=== PATIENT | female | born 1960 | race Caucasian/White ===

== ENCOUNTER 2021-03-11 22:28 | Emergency (ER) | payer OTHER ==
[2021-03-11] MEDS ORDERED: Diphtheria,Pertussis(Acell),Tetanus Vaccine 0.5 ML Syringe IM ONE (22:53)
[2021-03-11] MEDS ORDERED: Bacitracin Oint 1 GM U/D Packet TOP ONE (23:08)
--- NOTE | 2021-03-11 23:14 | EDM.PDOC ---
ED HPI GENERAL MEDICAL PROBLEM - General Chief Complaint: Bite:Animal, Insect Stated Complaint: DOG BITE ON NOSE Time Seen by Provider: 03/11/21 22:43 Source of Information: Reports: Patient History Limitations: Reports: No Limitations - History of Present Illness INITIAL COMMENTS - FREE TEXT/NARRATIVE: Is a 60-year-old female presenting to the ED for evaluation of a dog bite to her face. Patient was watching her daughter's dog which is a rat terrier Cesar mix. She was getting ready to go to bed and was doing something with the dog resulting in the dog biting her in the nose. She has a 1.2 cm laceration of the left nares to the tip of the nose causing a small avulsion flap. Bleeding is controlled. There are several other superficial lacerations that only go thro ugh the epidermis but not into the dermis. The dog is up to date on its vaccinations. The patient believes that her last tetanus was many years ago so we will booster that today. Nose Pain Score (Numeric/FACES): 3 - Related Data Allergies Allergy/AdvReac Type Severity Reaction Status Date / Time No Known Allergies Allergy Verified 03/11/21 22:47 Home Meds: Home Meds NK [No Known Home Meds] 03/11/21 [History] Social & Family History - Tobacco Use Tobacco Use Status *Q: Never Tobacco User - Recreational Drug Use Recreational Drug Use: No ED ROS GENERAL - Review of Systems Review Of Systems: See Below Constitutional: Reports: No Symptoms HEENT: Reports: Other (Dog bite to the nose causing a 1.2 cm laceration to the left naris) Respiratory: Reports: No Symptoms Cardiovascular: Reports: No Symptoms ED EXAM, ANIMAL BITE - Physical Exam Exam: See Below Exam Limited By: No Limitations General Appearance: Alert, No Apparent Distress Nose: Nasal Swelling (Can [place] to the dog bite), Other (1.2 cm laceration (avulsion) from the mid left naris to the tip of the nose. Several other sizable superficial lacerations on both sides of the nose that have already scabbed over.) Head: Normocephalic, Facial Swelling (Mild swelling of the tip of the nose and nasal bridge to the dog bite) Neck: Normal Inspection, Supple. No: Lymphadenopathy (R), Lymphadenopathy (L) ED ANIMAL BITE PROCEDURES - Laceration/Wound Repair Left Nare Lac/Wound Length In cm: 1.2 Appearance: Subcutaneous, Stellate, Mildly Contaminated Distal NVT: Neuro & Vascular Intact Anesthetic Type: Local Local Anesthesia - Lidocaine (Xylocaine): 1% with EPI Local Anesthetic Volume: 1cc Skin Prep: Other (Soap and water) Exploration/Debridement/Repair: Wound Explored, In a Bloodless Field, Explored to Base, No Foreign Material Found, Other (Alignment of the avulsion flap to the tip of the nose from the left naris) Closed With: Sutures Suture Size: 5-0 # of Sutures: 3 Suture Type: Interrupted, Other (5-0 fast-absorbing gut) Sterile Dressing Applied: Nurse Tetanus Status Addressed: Yes Complications: No Course - Vital Signs Last Recorded V/S: Last Vital Signs Temp 36.5 C 03/11/21 22:46 Pulse 64 03/11/21 22:46 Resp 18 03/11/21 22:46 BP 138/72 03/11/21 22:46 Pulse Ox 97 03/11/21 22:46 - Orders/Labs/Meds Orders: Active Orders 24 hr Category Date Time Status Vaccine to be Administered/Admin Charge [RC] ASDIRECTED Care 03/11/21 22:53 Ordered Bacitracin [Bacitracin Oint 1 GM] Med 03/11/21 23:08 Once 1 dose TOP ONETIME ONE Meds: Medications Discontinued Medications Generic Name Dose Route Start Last Admin Trade Name Joseq PRN Reason Stop Dose Admin Diphtheria/Tetanus/Acell Pertussis 0.5 ml 03/11/21 22:53 Diphtheria,Pertussis(Acell),Tetanus Vaccine 0.5 Ml Syringe IM 03/11/21 22:54 .ONCE ONE - Re-Assessments/Exams Free Text/Narrative Re-Assessment/Exam: 03/11/21 23:13 the patient sustained a significant avulsion laceration to the naris due to a dog bite. We will put her on Augmentin 875 mg twice daily for 7 days to treat for the dog bite. I did close the wound and realigned the avulsion using 5-0 fast-absorbing gut. The sutures will not need to be removed. I did instruct the patient that this will likely get more swollen, red, hot, and tender over the next day but should start to improve after that on the antibiotics. She may take Tylenol or ibuprofen for pain. Indications to return to the ED were discussed and she was suitable for discharge in satisfactory cond ition. Departure - Departure Time of Disposition: 23:14 Disposition: Home, Self-Care 01 Clinical Impression: Open wound of nose due to dog bite Laceration of nose Qualifiers: Encounter type: initial encounter Qualified Code(s): S01.21XA - Laceration without foreign body of nose, initial encounter - Discharge Information Instructions: Animal Bite, Adult, [id number], Facial Laceration Referrals: PCP,None [Primary Care Provider] - Care Plan Goals: Due to the dog bite we are going to start you on Augmentin 875 mg twice daily for 7 days. This has been sent out to the [employer] machine so you may start it tonight. We have also updated your tetanus so you should be good for another 5 to 10 years. As we discussed, this will likely get worse before it gets better due to the nature of the wound. Dog bites uniformly become infected and it may take 24 hours for the antibiotics to get ahead of this infection. Please keep the wound clean and dry for the next 24 hours. Apply a light coating of bacitracin over the wound twice daily for the next 5 days. You may want a wear sunscreen when out in the sun so that the wound does not tattoo. Feel free to contact us if you have any concerns. Sepsis Event Note (ED) - Evaluation Sepsis Screening Result: No Definite Risk - Focused Exam Vital Signs: Vital Signs Temp Pulse Resp BP Pulse Ox 03/11/21 22:46 36.5 C 64 18 138/72 97 - Problem List & Annotations (1) Laceration of nose SNOMED Code(s): 997553620 Code(s): S01.21XA - LACERATION WITHOUT FOREIGN BODY OF NOSE, INITIAL ENCOUNTER Status: Acute Priority: Medium Current Visit: Yes Qualifiers: Encounter type: initial encounter Qualified Code(s): S01.21XA - Laceration without foreign body of nose, initial encounter (2) Open wound of nose due to dog bite SNOMED Code(s): 285365916 Code(s): S01.25XA - OPEN BITE OF NOSE, INITIAL ENCOUNTER; W54.0XXA - BITTEN BY DOG, INITIAL ENCOUNTER Status: Acute Priority: Medium Current Visit: Yes - Problem List Review Problem List Initiated/Reviewed/Updated: Yes - My Orders Last 24 Hours: My Active Orders 03/11/21 22:53 Vaccine to be Administered/Admin Charge [] ASDIRECTED 03/11/21 23:08 Bacitracin [Bacitracin Oint 1 GM] 1 dose TOP ONETIME ONE - Assessment/Plan Last 24 Hours: My Active Orders 03/11/21 22:53 Vaccine to be Administered/Admin Charge [] ASDIRECTED 03/11/21 23:08 Bacitracin [Bacitracin Oint 1 GM] 1 dose TOP ONETIME ONE
== END 2021-03-11 23:24 | disposition home or self-care (01) ==
LOC: JP.ED 22:28
DX: S01.25XA Open bite of nose, initial encounter (principal); Z23 Encounter for immunization; W54.0XXA Bitten by dog, initial encounter
CPT/HCPCS: 12011; 90471; 90715; 99283-25